=== PATIENT | male | born 1960 | race Caucasian/White ===

== ENCOUNTER 2023-12-29 11:48 | Emergency (ER) | payer OTHER ==
[~2023-12-29] VITALS: Ht 167.6 cm; Wt 81.6 kg
[2023-12-29 11:58] VITALS: PULSE 96; RESP 17; TEMP 97; O2SAT 97
== END 2023-12-29 12:53 | disposition home or self-care (01) ==
LOC: ER 11:56
DX: R10.32 Left lower quadrant pain (principal); G89.29 Other chronic pain; Q63.1 Lobulated, fused and horseshoe kidney
CPT/HCPCS: 99282

== ENCOUNTER 2024-11-13 12:40 | Emergency (ER) | payer MEDICARE ==
[~2024-11-13] VITALS: Ht 167.6 cm; Wt 79.6 kg
[2024-11-13] MEDS ORDERED: CEPHALEXIN 500 MG CAP PO SCH (13:00)
[2024-11-13] MEDS: KETOROLAC TROMETHAMINE 30 MG/ML VIAL IV STA (13:02)
[2024-11-13] MEDS: DIPHENHYDRAMINE HCL 25 MG CAP PO ONE (13:02)
[2024-11-13] MEDS: PREDNISONE 20 MG TAB PO ONE (13:02)
[2024-11-13] MEDS ORDERED: CEPHALEXIN500 MG PO (13:07)
[2024-11-13] MEDS ORDERED: KETOROLAC TROME10 MG PO (13:07)
[2024-11-13] MEDS ORDERED: CEPHALEXIN MONOHYDRATE 250 MG CAP ONE (13:17)
[2024-11-13 13:18] VITALS: PULSE 95; RESP 16; TEMP 98.4; O2SAT 97
[2024-11-13] MEDS: CEPHALEXIN MONOHYDRATE 250 MG CAP PO SCH (13:20)
[2024-11-13] MEDS: KETOROLAC TROMETHAMINE 60 MG/2 ML VIAL IM ONE (13:26)
== END 2024-11-13 13:28 | disposition home or self-care (01) ==
LOC: FSED 12:46
DX: L03.115 Cellulitis of right lower limb (principal); S90.861A Insect bite (nonvenomous), right foot, initial encounter; R68.84 Jaw pain; Q63.1 Lobulated, fused and horseshoe kidney
CPT/HCPCS: 99283; J1885; J7512

== ENCOUNTER 2024-12-18 13:55 | Emergency (ER) | payer MEDICARE ==
[~2024-12-18] VITALS: Ht 167.6 cm; Wt 81.6 kg
[~2024-12-18 13:55] MED LIST: CEPHALEXIN500 MG PO; KETOROLAC TROME10 MG PO
[2024-12-18] MEDS ORDERED: METHOCARBAMOL750 MG PO (14:08)
[2024-12-18] MEDS ORDERED: MELOXICAM7.5 MG PO (14:08)
[2024-12-18 14:12] VITALS: PULSE 66; RESP 18; TEMP 98.1
[2024-12-18] MEDS: KETOROLAC TROMETHAMINE 30 MG/ML VIAL IM STA (14:24)
[2024-12-18 14:43] VITALS: BP 127/67; O2SAT 97
== END 2024-12-18 14:28 | disposition home or self-care (01) ==
LOC: FSED 14:00
DX: R10.9 Unspecified abdominal pain (principal); K43.9 Ventral hernia without obstruction or gangrene; Q63.1 Lobulated, fused and horseshoe kidney
CPT/HCPCS: 99282; J1885

== ENCOUNTER 2025-01-24 12:35 | Emergency (ER) | payer MEDICARE ==
[~2025-01-24] VITALS: Ht 167.6 cm; Wt 80.9 kg
[~2025-01-24 12:35] MED LIST changes: +MELOXICAM7.5 MG PO; +METHOCARBAMOL750 MG PO
[2025-01-24 12:50] VITALS: PULSE 65; RESP 20; TEMP 98.3; O2SAT 95
[2025-01-24] MEDS ORDERED: IBUPROFEN600 MG PO (13:17)
[2025-01-24] MEDS ORDERED: TYLENOL325 MG PO (13:17)
[2025-01-24] MEDS ORDERED: NEURONTIN300 MG PO (13:17)
[2025-01-24] MEDS: ACETAMINOPHEN 325 MG TAB PO ONE (13:20)
[2025-01-24] MEDS: KETOROLAC TROMETHAMINE 30 MG/ML VIAL IM ONE (13:41)
== END 2025-01-24 13:34 | disposition home or self-care (01) ==
LOC: FSED 12:47
DX: B02.23 Postherpetic polyneuropathy (principal); Q63.1 Lobulated, fused and horseshoe kidney
CPT/HCPCS: 99284; J1885